=== PATIENT | male | born 1990 | race Caucasian/White ===

== ENCOUNTER 2022-02-20 21:46 | Emergency (ER) | payer OTHER ==
[~2022-02-20] VITALS: Ht 172.7 cm; Wt 90.7 kg
[~2022-02-20 21:46] MED LIST: RXTRAM50 PO; SULTRIDS PO; TRAM50 PO; TRIA80TC TOP
== END 2022-02-21 00:15 | disposition home or self-care (01) ==
LOC: ER 21:46
DX: K08.89 Other specified disorders of teeth and supporting structures (principal); R68.84 Jaw pain; Z88.0 Allergy status to penicillin
CPT/HCPCS: A9270

== ENCOUNTER 2022-03-07 09:04 | Emergency (ER) | payer OTHER ==
[~2022-03-07] VITALS: Ht 175.3 cm; Wt 90.7 kg
[2022-03-07] MEDS ORDERED: Robaxin750 MG PO (11:09)
[2022-03-07] MEDS ORDERED: Naprosyn500 MG PO (11:09)
[2022-03-07] MEDS ORDERED: METPRE4DP PO (11:09)
== END 2022-03-07 11:15 | disposition home or self-care (01) ==
LOC: ER 09:04
DX: M54.12 Radiculopathy, cervical region (principal); Z88.0 Allergy status to penicillin
CPT/HCPCS: 99282

== ENCOUNTER 2022-04-05 15:09 | Emergency (ER) | payer OTHER ==
[~2022-04-05] VITALS: Ht 172.7 cm; Wt 95.2 kg
[~2022-04-05 15:09] MED LIST changes: +METPRE4DP PO; +Naprosyn500 MG PO; +Robaxin750 MG PO
[2022-04-05 16:46] LABS: Influenza A, PCR NEGATIVE (NEGATIVE); Influenza B, PCR NEGATIVE (NEGATIVE); SARS-Cov-2 (COVID-19) PCR, MMC NEGATIVE (NEGATIVE)
[2022-04-05 16:53] LABS: Resp Syncytial Virus, PCR POSITIVE (NEGATIVE)
== END 2022-04-05 17:48 | disposition home or self-care (01) ==
LOC: ER 15:09
PROVIDERS: Physician Assistant
DX: J06.9 Acute upper respiratory infection, unspecified (principal); B97.4 Respiratory syncytial virus as the cause of diseases classified elsewhere; Z88.0 Allergy status to penicillin; Z79.899 Other long term (current) drug therapy; Z20.822 Contact with and (suspected) exposure to COVID-19
CPT/HCPCS: 0241U

== ENCOUNTER 2022-04-13 11:22 | Emergency (ER) | payer OTHER ==
[~2022-04-13] VITALS: Ht 175.3 cm; Wt 90.7 kg
[2022-04-13] MEDS ORDERED: CEPH500 PO (13:03)
== END 2022-04-13 13:20 | disposition home or self-care (01) ==
LOC: ER 11:22
DX: L05.01 Pilonidal cyst with abscess (principal); Z88.0 Allergy status to penicillin
CPT/HCPCS: 10080; 99282-25